=== PATIENT | male | born 1990 | race Caucasian/White ===

== ENCOUNTER 2019-04-15 00:36 | Inpatient (IN) | payer OTHER, MEDICAID ==
[~2019-04-15] VITALS: Ht 177.8 cm; Wt 72.2 kg
[2019-04-15 00:39] VITALS: Ht 177.8 cm; Wt 72.2 kg
--- NOTE | 2019-04-15 00:39 | NUR ---
PT PRESENTED TO ED VIA AMBULANCE FOR POSSIBLE OVERDOSE. PER CLINT WILLIS, "HE WAS FOUND IN A HOTEL ROOM UNRESPONSIVE, PD AND EMS WERE ALREADY ON SCENE" AND "WE GAVE HIM 0.5 NARCAN ON SCENE AND 0.5 NARCAN IN ROUTE, HE WOKE UP A LITTLE BIT AND WAS ABLE TO TELL US HIS NAME, HE RESPONDS TO PAINFUL STIMULI". UPON ARRIVAL TO ED PT WAS MOVING AROUND ON GURNEY WITH EYES CLOSED, SPEECH GARBLED. PT STATING RANDOM THINGS LIKE "I NEED TO TALK TO KAYLEE" AND THEN BEGINS TALKING IN CENTRAL AFRICAN. PT WITHDRAWALS TO PAIN BUT PT DOES NOT OPEN EYES. PT OBSERVED MOVING ALL EXTREMITIES IN BED WITH NO ASSISTANCE. PT OBSERVED LAYING ON GURNEY WITH EYES CLOSED,BREATHING EVEN AND UNLABORED. CM AND [address] WILL CONTINUE TO MONITOR. AWAITING MSE.
--- NOTE | 2019-04-15 01:30 | NUR ---
MSE COMPLETED BY MD GARCIA.
--- NOTE | 2019-04-15 02:31 | NUR ---
PT OBSERVED MOVING AROUND EXTREMITIES ON GURNEY AND MOVING HEAD FROM SIDE TO SIDE MAKING SOUNDS AND SAYING "SI, SI, SI". PT LOCALIZED PAIN AND ATTEMPTED TO PULL NC OUT WHEN ADJUSTING IT ON PT. PT STILL DOES NOT OPEN EYES TO VERBAL OR TACTILE STIMULI. BREATHING EVEN AND UNLABORED. CM AND [address] WILL CONTINUE TO MONITOR.
--- NOTE | 2019-04-15 03:46 | NUR ---
MOVED PT UP IN BED WITH ASSISTANCE BY LINDA TRAN. PT OBSERVED FROWNING AND MAKING NOISES WHEN BEING MOVED. NO CHANGE IN STATUS FROM PREVIOUS NOTE, STILL DOES NOT OPEN EYES TO VERBAL OR TACTILE STIMULI. BREATHING EVEN AND UNLABORED. CM AND [address] WILL CONTINUE TO MONITOR.
--- NOTE | 2019-04-15 04:09 | NUR ---
AT BEDSIDE USING TACTILE AND VERBAL STIMULI TO WAKE PT UP. PT MUMBLING BUT STATES "YOU DONT NEED TO SCAN IT BRO" WHEN MD GARCIA STATED HE WANTED TO SCAN HIS BRAIN. PT OPENED EYES WITH NOXIOUS STIMULI WITH AMMONIA INHALANT. MD GARCIA ASKED PT IF HE COULD WALK PT STATES "YEAH I CAN WALK". PT TAKEN OF 02 AT THIS TIME, PT SATING AT 93-94% ON RA. BREATHING EVEN AND UNLABORED. CM AND [address] WILL CONTINUE TO MONITOR.
[2019-04-15 04:46] LABS: PLATELET COUNT 159 x10^3mcL (130-400); RED CELL DISTRIBUTION WIDTH 13.9 % (11.5-14.5)
[2019-04-15 04:51] LABS: BASOPHIL % 0 % (0-2)
[2019-04-15 04:56] LABS: ALKALINE PHOSPHATASE 110 U/L (46-116); BILIRUBIN TOTAL 1.6 mg/dL (0.20-1.00); CALCIUM 7.6 mg/dL (8.5-10.1); CHLORIDE SERUM 101 mmol/L (98-107); GLUCOSE SERUM 122 mg/dL (74-106); SODIUM SERUM 137 mmol/L (136-145); TOTAL PROTEIN, SERUM 6.7 g/dL (6.4-8.2)
[2019-04-15 05:05] LABS: ALBUMIN 3.2 g/dL (3.4-5.0); GFR1 14 mL/min
[2019-04-15 05:10] LABS: ALT/SGPT 4780 U/L (16-63); AST/SGOT 3944 U/L (15-37)
[2019-04-15 05:12] LABS: CREATININE SERUM 5.2 mg/dL (0.7-1.3)
--- NOTE | 2019-04-15 05:24 | NUR ---
PT STILL LAYING ON GURNEY IN NAD. PT RESPONDING TO VERBAL AND TACTILE STIMULI. MD GARCIA AT BEDSIDE SPEAKING WITH PT ABOUT A RIDE S/P DISCHARGE. PT STATES "I CAN GO ON MY OWN". CM AND [address] BREATHING EVEN AND UNLABORED. WILL CONTINUE TO MONITOR.
--- NOTE | 2019-04-15 06:45 | NUR ---
MD GARCIA AT BEDSIDE SPEAKING WITH PT, PT RESPONDING TO QUESTIONS APPROPRAITELY. WHEN RADHA ASKS PT WHERE THEY WERE FROM PT CLEARLY AND LOUDLY STATES "[place]". PT RESPONDS TO VERBAL AND TACTILE STIMULI BUT CONTINUES TO KEEP EYES CLOSED. PT RAMBLES AND STATES RANDOM PHRASES LIKE "NEXT TIME I GOT TO TRY HARDER". CM AND [address] IV FLUIDS RUNNING AT ORDERED RATE. WILL CONTINUE TO MONITOR.
--- NOTE | 2019-04-15 06:52 | NUR ---
EKG COMPLETED AT BEDSIDE BY CHELSEA RESENDIZ.
--- NOTE | 2019-04-15 07:01 | NUR ---
ATTEMPTED TO CALL REPORT TO TRISTEN RN. IN MIDDLE OF REPORT CALL DROPPED. ATTEMPTED TO CALL REPORT AGAIN AND CALL WAS DROPPED. CALLED UNIT AND INSTRUCTED UNIT TO CALL EXTENSION SO THEY CAN RECIEVE REPORT.
[2019-04-15 07:18] LABS: BILIRUBIN TOTAL 1.57 mg/dL (0.20-1.00); CALCIUM 7.2 mg/dL (8.5-10.1); CARBON DIOXIDE 21.8 mmol/L (21-32); TOTAL PROTEIN, SERUM 6.3 g/dL (6.4-8.2)
[2019-04-15 07:19] LABS: ALBUMIN 2.8 g/dL (3.4-5.0); CREATININE SERUM 5.5 mg/dL (0.7-1.3)
--- NOTE | 2019-04-15 07:36 | NUR ---
REPORT CALLED TO TRISTEN GAN.
--- NOTE | 2019-04-15 07:44 | NUR ---
PT TRANSFERED VIA GURNEY BY MARTÍN EMT AND WILMAR RN TO TELE AT THIS TIME. PT RESPONDING TO VERBAL AND TACTILE STIMULI. SPEECH IS CLEAR. BREATHING EVEN AND UNLABORED. TRANSPORT CM IN PLACE. IV FLUIDS ENDORSED TO TRISTEN RN. BELONGINGS SENT WITH PT.
--- NOTE | 2019-04-15 07:54 | NUR ---
RECEIVED PT FROM ER NURSE, PT IN NO ACUTE RSP DISTRESS, RESP NONLABORED, NO SOB/COUGH, TELE #28, HALLUCINATION, RESPONSE TO VERBAL STIMULI, GARBLE SPEECH, NO REDNESS/DRAINAGE, CHEST RISE SYMMETRICALLY, ABD FLAT AND NON-TENDER TO TOUCH, BS ACTIVE X 4, LAST BM 04/15/19, SOFT, PT POOPED AND URINATED ON SELF, GEN. WEAKNESS, PALP PULSES, CAP REFILL < 3 SECS, NEW ORDER TO INSERT FC 16FR, SKIN D/W/C, SEE ASSESSSMENT, IV PATENT AND NO INFILTRATION, ALL NEEDS ADDRESSED AT THIS TIME, SAFETY PROTOCOL AND FALL RISK INITIATED, CONTINUE TO MONITOR
[2019-04-15 08:18] LABS: MAGNESIUM 2.2 mg/dL (1.8-2.4)
[2019-04-15 08:22] LABS: CHOLESTEROL/HDL RATIO 1.9
[2019-04-15 08:26] LABS: FREE T4 1.72 ng/dL (0.76-1.46); FREE THYROXINE INDEX 3.4 ug/dL (1.4-4.5); T4(THYROXINE) 9.2 ug/dL (4.7-13.3)
[2019-04-15 08:35] LABS: T3 TOTAL 0.92 ng/mL
--- NOTE | 2019-04-15 09:13 | NUR ---
FC 16FR INSERTED PER MD ORDERED, TAKEN WELL, NO URINE RETURN AT THIS TIME, PT STILL HALLUCINATION AND TALKED TO SELF, RT AT BEDSIDE
--- NOTE | 2019-04-15 09:31 | NUR ---
PT WENT TO CT SCAN, NO T IN ACUTE REST DISTRESS, CRISTIANA, ASSISTED BY 2 STAFFS
--- NOTE | 2019-04-15 09:58 | NUR ---
PT BACK TO BED, IN NO ACUTE RESP DISTRESS, IV RE-STARTED AT RATE 160ML/HR PER DR. LUIS ORDER, TAKEN WELL, IV PATENT AND INFUSING WELL
--- NOTE | 2019-04-15 10:43 | NUR ---
CT SCAN STAFF CALLED AND REPORTED ABNORMAL CT HEAD RESULT, DR LUIS PAGELaura AND MADE AWARE BY CT STAFF
--- NOTE | 2019-04-15 10:48 | NUR ---
CT SCAN RESULTED, (RESIDENT) ASSIGNED TO THIS PT MADE AWARE AND GIVEN RESULT OF CT SCAN HEAD RESULT. WILL AWAIT FOR FURTHER ORDER. BEBE RN ASSIGNED TO THIS PT MADE AWARE OF ABOVE.
--- NOTE | 2019-04-15 10:55 | NUR ---
URINE COLLECTED FOR UA AND DUS ORDER, MRSA NARE SAMPLE COLLECTED
[2019-04-15 11:32] LABS: AMPHETAMINE QUAL UR POSITIVE (See below)
--- NOTE | 2019-04-15 11:38 | NUR ---
PT GOT TELE NEURO CONSULT BY DR SERJIO AGARWAL, NEUROLOGIST TALKED DIRECTLY W/ DR LUIS AT BEDSIDE, NEURO CONSULT DONE, WILL FAX RECOMMENDATION TO DR LUSI
[2019-04-15 11:54] VITALS: BP 116/94
[2019-04-15 12:14] VITALS: BP 144/76
--- NOTE | 2019-04-15 13:45 | NUR ---
PT SLEEPING IN BED, NO HALLUCINATION NOTED AT THIS TIME, IN NO ACUTE RESP DISTRESS
[2019-04-15 13:50] VITALS: BP 150/89
--- NOTE | 2019-04-15 13:50 | NUR ---
RT MADE AWARE OF NEW ORDER FROM DR LUIS FOR HIGH FLOW OXYGEN VIA NC
--- NOTE | 2019-04-15 14:38 | NUR ---
SEEN BY RT AT BEDSIDE, HIGH FLOW OXYGEN GIVEN PER RT, 45%, 26L, 93% O2 SAT, RR-40
--- NOTE | 2019-04-15 16:45 | NUR ---
PT TEMP NOTED 101.8, COOLING METHOD APPLIED, DR JANELLE CHAPIN, AWAITING FOR CALLING BACK, CHARGE NURSE MADE AWARE
[2019-04-15 17:12] VITALS: BP 151/88
--- NOTE | 2019-04-15 17:16 | NUR ---
DR MELO PACKAGING MACHINE OPERATOR CALLED AND MADE AWARE OF I&O, UO NOTED 250, TEA COLOR, NNO, CONTINUE TO MONITOR
--- NOTE | 2019-04-15 17:47 | NUR ---
TEMP 101.8, TYL 325MG SUPPOSITORY X [address] LUIS ORDER VIA EMAR, CONTINUE TO MONITOR
[2019-04-15 18:12] LABS: RED CELL DISTRIBUTION WIDTH 14.2 % (11.5-14.5)
[2019-04-15 18:15] LABS: PLATELET COUNT 109 x10^3mcL (130-400)
--- NOTE | 2019-04-15 18:26 | NUR ---
LAB RESULT REPORTED TO DR. TA AND DR LUIS, NEW ORDER FOR BLOOD CULTURE, PT MADE AWARE, CHARGE NURSE BONNIE MADE AWARE
[2019-04-15 18:34] LABS: BILIRUBIN TOTAL 1.6 mg/dL (0.20-1.00); CALCIUM 6.8 mg/dL (8.5-10.1)
--- NOTE | 2019-04-15 18:40 | NUR ---
TEMP - 100.1, DR LUIS AND CHARGE NURSE BONNIE MADE AWARE, PI IN BED, IN NO ACUTE RESP DISTRESS
[2019-04-15 18:42] LABS: ALBUMIN 2.2 g/dL (3.4-5.0); TOTAL PROTEIN, SERUM 5.3 g/dL (6.4-8.2)
[2019-04-15 18:45] LABS: CREATININE SERUM 6.7 mg/dL (0.7-1.3)
--- NOTE | 2019-04-15 18:52 | NUR ---
DR LUIS MADE AWARE OF NEW WBC-1.5, BUN/CR-74/6.7, IV IN 12 HOURS - 4600ML (3000ML IN ER AND 1600 ON MST FLOOR) AND URINE OUTPUT IN 12 HOURS - 250ML, SAID WILL F/U W/ PT LAB RESULT AND RENAL CONDITION, CHARGE NURSE BONNIE MADE AWARE
[2019-04-15 19:40] VITALS: BP 135/76
--- NOTE | 2019-04-15 19:40 | NUR ---
UNABLE TO DO FULL SKIN ASSESSMENT DUE TO PAU CATH PLACEMENT AT BEDSIDE.
--- NOTE | 2019-04-15 19:40 | NUR ---
TIME OUT PROCEDURE INITIATED, DR LUIS AND DR DHILLON AT BEDSIDE, TWO ULTRASOUND TECHS AT BEDSIDE.
--- NOTE | 2019-04-15 20:00 | NUR ---
RECEIVED PT FROM DAY SHIFT, PT SEEN, VERY LETHARGIC AND RESPONDING WITH STERNAL RUB, MUMBLING AT TIMES, LABORED AND SHALLOW BREATHING. ON HIGH FLOW 25 L WITH FIO2:45%, RT PROTOCO, ON TELE#28 ST, NO S&S OF CHEST PAIN, IVF INFUSING WELL TO LAC, PULSES PALPABLE, NO EDEMA NOTED, GENERALIZED WEAKNESS, ABD SOFT AND FLAT WITH ACTIVE BS, NO BM AT THIS TIME, INCONTINENT, CHRISTIANSON VIA GRAVITY DRAINING TEA COLORED URINE, SIDE RAILS UP, BED ALARM ON, WILL KEEP TO MONITOR.
--- NOTE | 2019-04-15 20:01 | NUR ---
ATIVAN 1MG VIA IVP ADMINISTERED FOR PAU CATH INSERTION.
[2019-04-15 20:02] LABS: BAND NEUTROPHIL 11 % (0-10); METAMYELOCTE 1 % (0-2); MONOCYTE 3 % (0-7); MYELOCYTE 2 % (0-2); SEGMENTED NEUTROPHILS 6 % (37-75)
[2019-04-15 20:05] LABS: PLATELET MORPHOLOGY PLATELETS DECREASED; acanthocyte (spur cell) 1+; rbc morphology (normal/abnorm) ABNORMAL (NORMAL)
[2019-04-15 20:28] LABS: UA SPECIFIC GRAVITY 1.025 (1.005-1.035); microscopic required? YES
[2019-04-15 20:29] LABS: urine erythrocyte 3+ (NEGATIVE)
--- NOTE | 2019-04-15 20:40 | NUR ---
PAU CATH INSERTION COMPLETED AT THIS TIME, POST VITAL SIGN, TEMP:99.2, BP:130/67(88), HR:129, RR:40, SPO2:97% ON HIGH FLOW 25L WITH FIO2:45%.
--- NOTE | 2019-04-15 20:50 | NUR ---
RT PARKINSON AT BEDSIDE, PT IS WITH LABORED AND SHALLOW BREATHING WITH RR:40, DR DHILLON MADE AWARE, NEW ORDER RECEIVED FOR ABG.
--- NOTE | 2019-04-15 21:00 | NUR ---
CRITICAL RESULT RECEIVED FROM IGGY REGARDING PT'S ABG- PCO2:17.8, HCO3:9.7, DR DHILLON AND DR CAVAZOS MADE AWARE.
[2019-04-15 21:04] VITALS: BP 130/67
--- NOTE | 2019-04-15 21:19 | NUR ---
Sodium Bicarbonate 8.4% Pfs 50 meq IVP GIVEN PER MD ORDER.
--- NOTE | 2019-04-15 21:33 | NUR ---
SPOKE WITH DR MELO REGARDING PT'S ABG RESULT AND ALL THE UPDATES SINCE BEGINNING OF SHIFT, NEW ORDER RECEIVED THAT OKAY TO GIVEN ANOTHER 1 AMP SODIUM BICARB IVP X [address] MELO NO NEED FOR HD TONIGHT, HE WILL FOLLOW UP PT'S LAB IN AM.
--- NOTE | 2019-04-15 21:45 | NUR ---
PER DR MELO THAT OKAY TO GIVE ANOTHER Sodium Bicarbonate 8.4% Pfs 50 meq IVP GIVEN PER MD ORDER.
--- NOTE | 2019-04-15 22:00 | NUR ---
NOTED A BLISTER ON PT'S RT BUTTOCKS WITH BLACK DISCOLORATION, BUTTOCK FOLD ON LEFT BUTTOCKS, NOTED BLANCHABLE ERYTHERMA TO BUTTOCKS, ABRASION TO LEFT SHOULDER. DR CAVAZOS MADE AWARE.
--- NOTE | 2019-04-15 22:27 | NUR ---
PAU CATH SITE DRESSING CHANGED, NEW BIOPATCH APPLIED, ORAL CARE GIVEN.
--- NOTE | 2019-04-15 23:14 | NUR ---
CRITICAL RESULT RECEIVED FOR ABG, PH:7.36, CO2:24.5, HCO3:13.5, DR CAVAZOS MADE AWARE.
--- NOTE | 2019-04-15 23:28 | NUR ---
PT IS VERY IMPULSIVE TONIGHT, FOUND PT WAS TRYING TO WALK TO BATHROOM WITH VERY UNSTEADY GAIT, EDUCATED PT WITH HIGH RISK OF FALLING AND USE CALL LIGHTS WHEN HE NEEDS TO USE BATHROOM, PT IS AAO X 4 AND CLEAR SPEECH, ASSITED PT BACK TO BED WITHOUT ANY INCIDENT, WILL CONTINUE TO MONITOR.
--- NOTE | 2019-04-16 01:35 | NUR ---
TOTAL BED BATH GIVEN, PT IS VERY RESTLESS AND CURSING THE WORDS DURING THE BATH, HEART RATE AT 160'S, DR CAVAZOS MADE AWARE, NEW ORDER RECEIVED FOR ATIVAN 0.5MG IVP X 1, MEDS GIVEN, WILL KEEP TO MONITOR.
--- NOTE | 2019-04-16 02:33 | NUR ---
DR DHILLON AND DR CAVAZOS MADE AWARE OF PT'S ABG RESULT, PCO2:203, HCO3:10.5, PT STILL RESTLESS IN BED, SHALLOW AND LABORED BREATHING WITH RR:35-40/MIN, ALL UPDATES GIVEN TO DR DHILLON AND DR CAVAZOS, NEW ORDER RECEIVED FOR ATIVAN 1MG VIA IVP X 1, MEDS GIVEN, WILL KEEP TO MONITOR.
[2019-04-16 05:49] VITALS: BP 143/75
--- NOTE | 2019-04-16 06:00 | NUR ---
PT STILL VERY RESTLESS THROUGHOUT THE NIGHT, MEDICATED WITH ATIVAN IVP X 4 BUT PT'S HEART RATE STILL AT 150'S, UPDATES GIVEN TO DR LIUS, RR STILL WITH 30-40/MIN, SHALLOW AND LABORED BREATHING, CONTINUE ON HIGH FLOW 25 L WITH FIO2:45%, SITTER AT BEDSIDE, WILL CONTINUE TO MONITOR.
[2019-04-16 06:46] LABS: CALCIUM 7.3 mg/dL (8.5-10.1); CARBON DIOXIDE 13.4 mmol/L (21-32); MAGNESIUM 1.8 mg/dL (1.8-2.4); PHOSPHOROUS 3.5 mg/dL (2.5-4.9); POTASSIUM SERUM 5.1 mmol/L (3.5-5.1)
--- NOTE | 2019-04-16 07:15 | NUR ---
PATIENT ARRIVED ON UNIT ACCOMPANIED BY LUNA RN, MYRA RN, YOANNA RN, HOOD RT AND BA RT. PATIENT NOTED TO BE UNRESPONSIVE WITH LABORED BREATHING ON NON REBREATHER AT 15LPM. PATIENT BROUGHT TO ICU FOR INTUBATION. BEDSIDE REPORT GIVEN BY MYRA GAN TO HOMAR GAN. AWAITING DR DODGE TO ARRIVE ON UNIT FOR INTUBATION.
--- NOTE | 2019-04-16 07:18 | NUR ---
NOTED PT'S HR-160'S, RR:45-50'S, SPO2:60-70% WITH HIGH FLOW 25L AND FIO2:45%, PT IS UNAROUSABLE WITH SHALLOW AND LABORED BREATHING, DR LUIS MADE AWARE AND CAME TO BEDSIDE AND EVAL PT, NEW ORDER RECEIVED FOR TRANSFER TO ICU, ATTACHED PT WITH FULL INDUSTRIAL GAS SERVICER SUPERVISOR AND PT TRANSFERRED TO ICU WITHOUT ANY INCIDENT.
[2019-04-16 07:22] VITALS: BP 139/76
--- NOTE | 2019-04-16 07:25 | NUR ---
0721- DR DODGE AT BEDSIDE WITH BA RT, HOOD RT, HOMAR RN AND MYSELF FOR PATIENT INTUBATION. REPORT GIVEN TO DR DODGE. 0723- PATIENT ADMINISTERED ETOMIDATE 10 MG IVP FOLLOWED BY 100 MG SUCC'S IVP PER DR DODGE ORDER. 0725- PATIENT INTUBATED WITH 7.5 ETT AT 22 LIP LINE. #16 BAHAMIAN OGT INSERTED WITH CONFIRMATION VIA AIR BOLUS OVER GASTRIC REGION. AWAITING CONFIRMATION VIA CXR OF PLACEMENT OF ETT AND OGT. PATIENT PLACED ON VENT AC MODE RATE 14, VT 500, PEEP 5, FIO2 100%. VITALS AT THIS TIME BP 148/84, HR 162, SPO2 99%.
--- NOTE | 2019-04-16 07:35 | NUR ---
REPORT GIVEN TO HOMAR-RN, ALL QUESTIONS ANSWERED AND CONCERNS ADDRESSED.
--- NOTE | 2019-04-16 07:55 | NUR ---
SEDATION OF VERSED AND FENTANYL STARTED. VERSED INITIATED AT 1 MG/HR AND FENTANYL AT 1 MCG/KG/HR.
--- NOTE | 2019-04-16 08:10 | NUR ---
PER DR DODGE VERBAL ORDER: IF PT'S HR > 200, SHOCK WITH 100J. ORDER REPEATED AND READ BACK.
[2019-04-16 08:14] LABS: CREATININE SERUM 9.1 mg/dL (0.7-1.3)
[2019-04-16 08:30] LABS: PLATELET COUNT 97 x10^3mcL (130-400); RED CELL DISTRIBUTION WIDTH 14.6 % (11.5-14.5)
--- NOTE | 2019-04-16 08:40 | NUR ---
THIS FOLLOWING IS A LIST OF THE TIMES PATIENT WAS DELIVERED SHOCKS AT 100J PER DR DODGE VERBAL ORDERS. 0813- HR 230 SVT 0817- HR 249 SVT 0819- HR 230 SVT 0821- HR 289 SVT 0824- HR 281 SVT 0826- HR 290 SVT 0827- HR 290 SVT 0830- HR 247 SVT 0832- HR GREATER THAN 200 SVT 0835- HR GREATER THAN 200 SVT AFTER PATIENT WAS DELIVERED SHOCKS, HR RETURNED IN 160'S.
--- NOTE | 2019-04-16 08:50 | NUR ---
PATIENT BOLUSED WITH [address] CARLTON FLORES.
--- NOTE | 2019-04-16 09:00 | NUR ---
AMIODORONE DRIP STARTED AT 1 MG/HR.
--- NOTE | 2019-04-16 09:05 | NUR ---
0813- PT'S HR > 200 SVT, PER DR. DODGE'S ORDER, SHOCK PT WITH 100J. SHOCK DELIVERED. PT'S HR NOW IN 160'S. 0817- HR >240, SHOCK WITH 100 J GIVEN. BP 123/27 (59) HR RETURNED IN 160'S BY 0830, PT RECEIVED MULTIPLE SHOCKS FOR HR > 200. 2L NS BOLUS GIVEN. DR. VINCENT AT BEDSIDE, 1 AMP BICARB IVP GIVEN PER DR. VINCENT. R FEMORAL CENTRAL LINE AND A LINE INSERTED BY DR VINCENT. 0850- AMIODARONE 150MG BOLUS GIVEN, 0855- MAGNESIUM CHLORIDE 2MG IVPB 0905 - LOPRESSOR 2.5 MG IVP FOR HR GREATER THAN 160.
[2019-04-16 09:18] VITALS: BP 69/29
--- NOTE | 2019-04-16 09:25 | NUR ---
LIMITED ECHO COMPLETED
[2019-04-16 09:36] LABS: RED CELL DISTRIBUTION WIDTH 14.5 % (11.5-14.5)
[2019-04-16 09:49] LABS: PLATELET COUNT 95 x10^3mcL (130-400)
[2019-04-16 10:01] LABS: BILIRUBIN TOTAL 1.5 mg/dL (0.20-1.00); CALCIUM 8.8 mg/dL (8.5-10.1); CARBON DIOXIDE 15.4 mmol/L (21-32); POTASSIUM SERUM 5.3 mmol/L (3.5-5.1)
--- NOTE | 2019-04-16 10:20 | NUR ---
0957- PT'S HR DECREASED FROM 90'S TO 30'S NO PULSE PALPATED. AMIODARONE STOPPED. SYLVAIN LANDRY CALLED, CPR STARTED. SEE CODE SHEET
[2019-04-16 10:24] LABS: ALBUMIN 1.6 g/dL (3.4-5.0)
[2019-04-16 10:27] LABS: CREATININE SERUM 9.6 mg/dL (0.7-1.3)
--- NOTE | 2019-04-16 10:45 | NUR ---
1038 - PT'S REPORT GIVEN TO LEGACY STAFF JOAN JOSE. CASE IS CLOSED BY [facility] WITH CASE # [id number]. 1041- PT'S REPORT GIVEN TO JUKEBOX OPERATOR STAFF TRACI. WAITING FOR JUKEBOX OPERATOR CLAY CALL BACK.
[2019-04-16 11:34] LABS: BAND NEUTROPHIL 0 % (0-10); SEGMENTED NEUTROPHILS 48 % (37-75)
[2019-04-16 11:35] LABS: MONOCYTE 16 % (0-7)
[2019-04-16 11:36] LABS: SEGMENTED NEUTROPHILS 48 % (37-75)
[2019-04-16 12:06] LABS: rbc morphology (normal/abnorm) NORMAL (NORMAL)
[2019-04-16 12:06] LABS: rbc morphology (normal/abnorm) NORMAL (NORMAL)
--- NOTE | 2019-04-16 12:10 | NUR ---
POISON CONTROL STAFF KATHERYN CALLED FOR UPDATE PT'S INFO. MAKE HER AWARE PT ON 1016 THIS MORNING.
--- NOTE | 2019-04-16 14:48 | NUR ---
TALKED TO MONEY LAUNDERING INVESTIGATOR DEPUTY PARKS AND PROVIDED PT'S INFORMATION. DEPUTY PARKS STATED HE WILL CALL ME BACK. AWAITING RETURN CALL.
--- NOTE | 2019-04-16 15:25 | NUR ---
DEPUTY PARKS TELEPHONED BACK AND STATED THAT PATIENT WILL BE ON HOLD FOR NOW AND NOT REMOVE ANY TUBING AND LINES.
--- NOTE | 2019-04-16 19:05 | NUR ---
RECIEVED REPORT FROM HOMAR GAN.
[2019-04-16 19:20] VITALS: BP 132/66
--- NOTE | 2019-04-16 21:17 | NUR ---
SPOKE WITH FISHING BOAT MATE STAFF JANN REGARDING PT RELEASE. JANN STATES THEY NEVER RECIEVED A CALL BUT MORNING SHIFT NURSE SPOKE WITH CORONERS STAFF TRACI AND DEPUTY PARKS. JANN STATES SHE IS GOING TO CONTACT THEM AND CALL BACK. AWAITING CALL BACK AT THIS TIME.
--- NOTE | 2019-04-16 22:15 | NUR ---
OMI FROM CORONERS CLEARED PT. REFERENCE NUMBER PROVIDED.
--- NOTE | 2019-04-16 22:32 | NUR ---
POSTMORTEM CARE PROVIDED TO PT. AWAITING CUSTOMER SERVICE PROFESSIONAL MULTIPLE CUT OFF SAW OPERATOR.
--- NOTE | 2019-04-16 22:38 | NUR ---
SECURITY CALLED TO COME YARN DUMPER PT.
--- NOTE | 2019-04-16 22:38 | NUR ---
REFERENCE NUMBER IS [id number]. PT CLEARED TO GO TO [facility].
== END 2019-04-16 22:39 | disposition expired | DRG 871 ==
LOC: ED 00:36 → EDBD 00:36 → ED 00:36 → MU 06:50 → DU 07:46 → IC 04-16 07:26
PROVIDERS: Emergency Medicine; General Practice; ADMIT Internal Medicine
PROC: 02HV33Z Insertion of Infusion Device into Superior Vena Cava, Percutaneous Approach (ICD-10-PCS; principal; 2019-04-15)
PROC: B548ZZA Ultrasonography of Superior Vena Cava, Guidance (ICD-10-PCS; 2019-04-15)
PROC: 0BH17EZ Insertion of Endotracheal Airway into Trachea, Via Natural or Artificial Opening (ICD-10-PCS; 2019-04-16)
PROC: 5A12012 Performance of Cardiac Output, Single, Manual (ICD-10-PCS; 2019-04-16)
PROC: 04HY32Z Insertion of Monitoring Device into Lower Artery, Percutaneous Approach (ICD-10-PCS; 2019-04-16)
PROC: 06HY33Z Insertion of Infusion Device into Lower Vein, Percutaneous Approach (ICD-10-PCS; 2019-04-16)
DX: A41.9 Sepsis, unspecified organism (principal); G92 Toxic encephalopathy; N17.0 Acute kidney failure with tubular necrosis; J96.01 Acute respiratory failure with hypoxia; J69.0 Pneumonitis due to inhalation of food and vomit; K72.00 Acute and subacute hepatic failure without coma; R65.21 Severe sepsis with septic shock; M62.82 Rhabdomyolysis; T40.7X1A Poisoning by cannabis (derivatives), accidental (unintentional), initial encounter; E83.52 Hypercalcemia; I46.9 Cardiac arrest, cause unspecified; E87.5 Hyperkalemia; E86.0 Dehydration; F11.10 Opioid abuse, uncomplicated; F15.10 Other stimulant abuse, uncomplicated; F12.10 Cannabis abuse, uncomplicated; T40.2X1A Poisoning by other opioids, accidental (unintentional), initial encounter; Y92.098 Other place in other non-institutional residence as the place of occurrence of the external cause
CPT/HCPCS: 31500; 36556; 36600; 83880; 84439; G0378; G0480; J0171; J0282; J0330; J1642; J2060; J2250; J2370; J2543; J3010; J3370; J3490; J7030; J7040; J7060; J7620; Q0092